=== PATIENT | female | born 1995 | race Caucasian/White ===

== ENCOUNTER 2016-10-07 09:14 | Emergency (ER) | payer OTHER ==
[2016-10-07 09:24] VITALS: BP 154/70; PULSE 66; RESP 18; TEMP 98.9
--- NOTE | 2016-10-07 09:51 | ED ---
ENT HPI - General Chief complaint: Dental/Oral Stated complaint: tooth pain Time Seen by Provider: 10/07/16 09:35 Source: patient, RN notes reviewed Mode of arrival: ambulatory Limitations: no limitations - History of Present Illness Initial comments: 21-year-old female presents to the emergency department with a chief complaint of dental pain. Patient states that she went to her dentist yesterday and was informed that all her wisdom teeth are coming in and she was made appointment for 2 weeks Now. Patient states they were informed that they were infected however she is not on any antibiotics. Patient states she continues to have throbbing and pain to the back of her mouth. Patient states water or anything seems to make the pain worse. Patient denies any fever chills with this. Patient denies any physical improved her clothes about 30 radiation to the neck. Patient states that she was concerned due to her continued pain so she thought that she should be evaluated. Patient denies any recent fever, chills, shortness of breath, chest pain, back pain, abdominal pain, nausea vomiting, numbness or tingling, dysuria or hematuria, constipation or diarrhea, headaches or visual changes, or any other current symptoms. - Related Data Home Medications Medication Instructions Recorded Confirmed Ranitidine HCl [Zantac] 150 mg PO BID 05/10/15 02/17/16 Ferrous Sulfate [Feosol] 325 mg PO DAILY 02/17/16 02/17/16 Ibuprofen [Motrin] 800 mg PO TID PRN 02/17/16 02/17/16 Norethindrone-E.estradiol-Iron 1 tab PO DAILY 02/17/16 02/17/16 [Loestrin Fe 1.5-30 Tablet] Zinc 50 mg PO DAILY 02/17/16 02/17/16 Previous Rx's Medication Instructions Recorded Acetaminophen-Codeine 300-30mg 1 tab PO Q4H PRN #20 tablet 10/07/16 [Tylenol w/codeine #3] Penicillin V Potassium [Pen Vee K] 500 mg PO TID #40 tab 10/07/16 Allergies Allergy/AdvReac Type Severity Reaction Status Date / Time Mushroom Allergy Rash/Hives Verified 02/17/16 19:24 ibuprofen AdvReac Nausea & Verified 10/07/16 09:25 Vomiting Review of Systems ROS Statement: Those systems with pertinent positive or pertinent negative responses have been documented in the HPI. ROS Other: All systems not noted in ROS Statement are negative. Past Medical History Past Medical History: GERD/Reflux Additional Past Medical History / Comment(s): Obstetric history: THis is her first and she has been seeing me for care since the first trimester. A+, abs neg, Rub Imm, RPR Nr, GBS neg. normal 1hr GTT. History of Any Multi-Drug Resistant Organisms: None Reported Past Surgical History: Cholecystectomy, Orthopedic Surgery Additional Past Surgical History / Comment(s): acl repair-lt Past Anesthesia/Blood Transfusion Reactions: No Reported Reaction Past Psychological History: No Psychological Hx Reported Smoking Status: Former smoker Past Alcohol Use History: None Reported Past Drug Use History: Marijuana - Past Family History Mother Family Medical History: No Reported History General Exam Limitations: no limitations General appearance: alert, in no apparent distress Head exam: Present: atraumatic, normocephalic, normal inspection ENT exam: Present: mucous membranes moist, normal external ear exam Expanded Ear exam: Present: normal external inspection Teeth exam: Present: normal inspection, other (Tenderness to the gums over the posterior aspect all aspects mouth). Absent: dental caries, fractured tooth #, dental tenderness #, gingival enlargement Throat exam: normal inspection Neck exam: Present: normal inspection. Absent: tenderness, meningismus, lymphadenopathy Respiratory exam: Present: normal lung sounds bilaterally. Absent: respiratory distress, wheezes, rales, rhonchi, stridor Cardiovascular Exam: Present: regular rate, normal rhythm, normal heart sounds. Absent: systolic murmur, diastolic murmur, rubs, gallop, clicks Neurological exam: Present: alert, oriented X3 Psychiatric exam: Present: normal affect, normal mood Skin exam: Present: warm, dry, intact, normal color. Absent: rash Course Vital Signs 10/07/16 09:20 Temperature 98.9 F Pulse Rate 66 Respiratory 18 Rate Blood Pressure 154/70 O2 Sat by Pulse 97 Oximetry Medical Decision Making - Medical Decision Making 21-year-old female presents for dental pain. We'll start antibiotics as well as pain medication. We did discuss continued follow-up with dentist return parameters. We did discuss all the patient's questions. She stated that she understood and is in agreement with the plan. She will be discharged home. Disposition Clinical Impression: Toothache Disposition: HOME SELF-CARE Condition: Stable Instructions: Toothache (ED) Additional Instructions: Please use medication as discussed. Please follow up with family doctor if symptoms have not improved over the next two days. Please return to the emergency room if your symptoms increase or worsen or for any other concerns. Prescriptions: Acetaminophen-Codeine 300-30mg [Tylenol w/codeine #3] 1 tab PO Q4H PRN #20 tablet PRN Reason: Pain Penicillin V Potassium [Pen Vee K] 500 mg PO TID #40 tab Referrals: Ruy Duque DO [Primary Care Provider] - 1-2 days Time of Disposition: 09:51
== END 2016-10-07 10:14 | disposition home or self-care (01) ==
LOC: EC 09:14
DX: K08.89 Other specified disorders of teeth and supporting structures (principal); K21.9 Gastro-esophageal reflux disease without esophagitis; Z87.891 Personal history of nicotine dependence; Z91.018 Allergy to other foods; Z88.6 Allergy status to analgesic agent; Z79.899 Other long term (current) drug therapy
CPT/HCPCS: 99282

== ENCOUNTER 2019-01-14 07:27 | Emergency (ER) | payer OTHER ==
[2019-01-14 07:40] VITALS: BP 120/83; PULSE 64; RESP 20; TEMP 97.8
[2019-01-14 08:09] LABS: Appearance,Urine Clear (Clear); Bilirubin,Urine Negative (Negative); Blood,Urine Negative (Negative); Color,Urine Light Yellow; Glucose,Urine (UA) Negative (Negative); Ketones,Urine Negative (Negative); Leukocyte Esterase,Urine Negative (Negative); Nitrite,Urine Negative (Negative); PH, Urine 5.5 (5.0-8.0); Protein,Urine Negative (Negative); Specific Gravity,Urine 1.014 (1.001-1.035); Urobilinogen,Urine <2.0 mg/dL (<2.0)
--- NOTE | 2019-01-14 08:13 | ED ---
Recheck HPI - General Chief Complaint: Recheck/Abnormal Lab/Rx Stated Complaint: needs test Time Seen by Provider: 01/14/19 07:41 Source: patient, RN notes reviewed Mode of arrival: ambulatory Limitations: no limitations - History of Present Illness Initial Comments: 23-year-old female presents emergency Department with chief complaint of vaginal itching and foul odor. Patient states that she has noticed over the last couple days. Patient sent follow-up with her physician though they stated they could not get her in for one month. Patient also states that she's had very light abnormal. Centimeters 3 months and is concerned she may be . She is A0 denies any vaginal bleeding. Patient has no complaints of abdominal pain including nausea, vomiting, diarrhea constipation no flank pain no fevers chills., - Related Data Previous Rx's Medication Instructions Recorded metroNIDAZOLE [Flagyl] 500 mg PO TID #21 tab 01/14/19 Allergies Allergy/AdvReac Type Severity Reaction Status Date / Time Mushroom Allergy Rash/Hives Verified 01/14/19 08:08 ibuprofen AdvReac Nausea & Verified 01/14/19 08:08 Vomiting Penicillins AdvReac Vomiting Verified 01/14/19 08:08 Review of Systems ROS Statement: Those systems with pertinent positive or pertinent negative responses have been documented in the HPI. ROS Other: All systems not noted in ROS Statement are negative. Past Medical History Past Medical History: GERD/Reflux Additional Past Medical History / Comment(s): Obstetric history: THis is her fir st and she has been seeing me for care since the first trimester. A+, abs neg, Rub Imm, RPR Nr, GBS neg. normal 1hr GTT. History of Any Multi-Drug Resistant Organisms: None Reported Past Surgical History: Cholecystectomy, Orthopedic Surgery Additional Past Surgical History / Comment(s): acl repair-lt Past Anesthesia/Blood Transfusion Reactions: No Reported Reaction Past Psychological History: No Psychological Hx Reported Smoking Status: Former smoker Past Alcohol Use History: None Reported Past Drug Use History: Marijuana - Past Family History Mother Family Medical History: No Reported History General Exam Limitations: no limitations General appearance: alert, in no apparent distress Head exam: Present: atraumatic, normocephalic, normal inspection Respiratory exam: Present: normal lung sounds bilaterally. Absent: respiratory distress, wheezes, rales, rhonchi, stridor Cardiovascular Exam: Present: regular rate, normal rhythm, normal heart sounds. Absent: systolic murmur, diastolic murmur, rubs, gallop, clicks GI/Abdominal exam: Present: soft, normal bowel sounds. Absent: distended, tenderness, guarding, rebound, rigid External exam: Present: normal external exam, other (Exam performed with RN) Speculum exam: Present: vaginal discharge Back exam: Absent: CVA tenderness (R), CVA tenderness (L) Neurological exam: Present: alert Skin exam: Present: warm, dry, intact, normal color. Absent: rash Course Vital Signs 01/14/19 07:37 Temperature 97.8 F Pulse Rate 64 Respiratory 20 Rate Blood Pressure 120/83 O2 Sat by Pulse 99 Oximetry Medical Decision Making - Medical Decision Making 23-year-old female presented vaginal symptoms dysuria. Patient has evidence of bacterial vaginosis exam. Patient was placed on Flagyl. Patient has negative test. - Lab Data Lab Results 01/14/19 01/14/19 Range/Units 07:57 07:57 Urine Color Light Yellow Urine Appearance Clear (Clear) Urine pH 5.5 (5.0-8.0) Ur Specific [place] 1.014 (1.001-1.035) Urine Protein Negative (Negative) Urine Glucose (UA) Negative (Negative) Urine Ketones Negative (Negative) Urine Blood Negative (Negative) Urine Nitrite Negative (Negative) Urine Bilirubin Negative (Negative) Urine Urobilinogen <2.0 (<2.0) mg/dL Ur Leukocyte Esterase Negative (Negative) Urine HCG, Qual Not Detected (Not Detectd) Disposition Clinical Impression: Bacterial vaginosis Disposition: HOME SELF-CARE Condition: Stable Instructions (If sedation given, give patient instructions): Bacterial Vaginosis (ED) Additional Instructions: Please return to the Emergency Department if symptoms worsen or any other concerns. Prescriptions: metroNIDAZOLE [Flagyl] 500 mg PO TID #21 tab Is patient prescribed a controlled substance at d/c from ED?: No Referrals: Ruy Duque DO [Primary Care Provider] - 1-2 days Time of Disposition: 09:07
[2019-01-14] MEDS ORDERED: AZITHROMYCIN 250 MG TAB PO STA (09:25)
[2019-01-14] MEDS ORDERED: cefTRIAXone 250 MG VIAL IM STA (09:25)
[2019-01-15 14:03] LABS: C. trachomatis,PCR Negative (Neg,Equiv); Chlamydia trachomatis Source Vagina
[2019-01-15 14:05] LABS: N. gonorrhoeae,PCR Negative (Neg,Equiv); Neisseria Source Vagina
== END 2019-01-14 09:56 | disposition home or self-care (01) ==
LOC: EC 07:27
DX: N76.0 Acute vaginitis (principal); Z32.02 Encounter for pregnancy test, result negative; Z91.018 Allergy to other foods; Z88.0 Allergy status to penicillin; Z88.6 Allergy status to analgesic agent; Z87.891 Personal history of nicotine dependence
CPT/HCPCS: 81003; 81025; 87808; 87491; 87591; 87070; 87205; 99283; 96372; J0696

== ENCOUNTER → 2019-05-12 | Outpatient (CLI) | payer OTHER ==
[~2019-05-12] MED LIST: cefTRIAXone 250 MG VIAL IM ONE
[2019-05-12 15:13] VITALS: BP 124/81; PULSE 62; RESP 15; TEMP 97.7
== END | disposition home or self-care (01) ==
LOC: PROCWHC3 14:41
PROVIDERS: ATTEND Obstetrics & Gynecology
DX: A54.9 Gonococcal infection, unspecified (principal)
CPT/HCPCS: 96372; J0696

== ENCOUNTER 2019-11-23 09:25 | Outpatient (CLI) | payer OTHER ==
[2019-11-23] MEDS ORDERED: LACTATED RINGERS 1,000 ML IV ONE (10:00)
[2019-11-23 10:32] LABS: Appearance,Urine Cloudy (Clear); Bacteria,Urine Occasional /hpf; Bilirubin,Urine Negative (Negative); Blood,Urine Negative (Negative); Color,Urine Yellow; Glucose,Urine (UA) Negative (Negative); Ketones,Urine 3+ (Negative); Leukocyte Esterase,Urine Moderate (Negative); Mucus,Urine Moderate /hpf; Nitrite,Urine Negative (Negative); PH, Urine 5.5 (5.0-8.0); Protein,Urine Negative (Negative); RBC,Urine 3 /hpf (0-5); Specific Gravity,Urine 1.009 (1.001-1.035); Squamous Epithelial Cell,Urine 3 /hpf (0-4); Urobilinogen,Urine <2.0 mg/dL (<2.0); WBC,Urine 21 /hpf (0-5)
[2019-11-23 11:21] VITALS: BP 126/66; PULSE 81; RESP 16; TEMP 97.3
--- NOTE | 2019-12-14 12:39 | P.MSEPDOC ---
Presenting Problems - Arrival Data Date of Arrival on Unit: 11/23/19 Time of Arrival on Unit: 09:25 Mode of Transport: Ambulatory - Complaint OB-Reason for Admission/Chief Complaint: Other Comment: n/v since november 19 Medical History - Information : 2 Para: 1 Term: 1 : 0 Abortions: Spontaneous or Elective: 0 Number of Living Children: 1 - Gestational Age Gestational Age by ASHLEY (wks/days): 20 Weeks and 2 Days Review of Systems - Review of Systems Constitutional: No problems Breast: No problems ENT: No problems Cardiovascular: No problems Respiratory: No problems Gastrointestinal: No problems Genitourinary: No problems Musculoskeletal: No problems Neurological: No problems Skin: No problems Vital Signs - Temperature Temperature: 97.3 F Temperature Source: Temporal Artery Scan - Pulse Right Brachial Pulse Rate: 81 Pulse Assessment Method: Automatic Cuff - Respirations Respiratory Rate: 16 Oxygen Delivery Method: Room Air - Blood Pressure Right Arm Blood Pressure: 126/66 Blood Pressure Mean: 86 Blood Pressure Source: Automatic Cuff Medical Screen Scoring (Pre) - Cervical Exam Dilation: Exam Deferred - Uterine Contractions Frequency: N/A Duration: N/A Intensity: N/A - Maternal Vital Signs Maternal Temperature: N/A Maternal Blood Pressure: N/A Signs of Preeclampsia: N/A Maternal Respirations: N/A - Maternal Trauma Maternal Trauma: N/A - Assessment - Baby A Baseline FHR: 135 - Total Score - Baby A Total Score - Baby A: 0 - Total Score - Baby B Total Score - Baby B: 0 - Total Score - Baby C Total Score - Baby C: 0 - Level of Risk - Baby A Level of Risk - Baby A: Low (0-5) - Level of Risk - Baby B Level of Risk - Baby B: Low (0-5) - Level of Risk - Baby C Level of Risk - Baby C: Low (0-5) Physician Notification (Pre) - Physician Notified Physician Notified Date: 11/23/19 Physician Notified Time: 09:50 New Order Received: Yes - Notification Comment Comment: reported pts visit, n/v since , was daily marijuana smoker until recently, then n/v began. orders for UA and iv bolus, UA sent,, results reported, IV infused. pt may be discharged home. culture UA Disposition - Disposition OB Disposition: Discharge to home Discharge Date: 11/23/19 Discharge Time: 11:05 I agree with the RN Medical Screening Exam: Yes Risk & Benefit of care provided described in d/c instruction: Yes Diagnosis: VOMITING OF , UNSPECIFIED
== END 2019-11-23 11:09 | disposition home or self-care (01) ==
LOC: FBPOP 09:25
PROVIDERS: ATTEND Obstetrics & Gynecology Obstetrics
DX: O21.2 Late vomiting of pregnancy (principal); Z3A.20 20 weeks gestation of pregnancy
CPT/HCPCS: 81001; 87086; 96367; 99215

== ENCOUNTER 2020-04-01 09:36 | Inpatient (IN) | payer OTHER ==
[2020-03-31 10:12] VITALS: BMI 42.9
[2020-04-01] MEDS ORDERED: CITRIC ACID-SODIUM CITRATE 15 ML CUP PO ONE (10:07)
[2020-04-01] MEDS ORDERED: CLINDAMYCIN 900 MG in DEXTROSE 5% IN WATER 50 ML IVPB ONE ×2 (10:15)
[2020-04-01] MEDS ORDERED: GENTAMICIN 400 MG in SODIUM CHLORIDE 0.9% 100 ML IVPB ONE (10:30)
[2020-04-01 10:48] LABS: Basophils % (A) 0 %; Eosinophils # (A) 0.1 k/uL (0-0.7); Eosinophils % (A) 2 %; HCT 33.6 % (34.0-46.0); HGB 10.8 gm/dL (11.4-16.0); Lymphocytes # (A) 1.2 k/uL (1.0-4.8); Lymphocytes % (A) 15 %; MCH 26.2 pg (25.0-35.0); MCHC 32.1 g/dL (31.0-37.0); MCV 81.6 fL (80.0-100.0); Mean Platelet Volume 7.6; Monocytes # (A) 0.3 k/uL (0-1.0); Monocytes % (A) 4 %; Neutrophils # (A) 6.1 k/uL (1.3-7.7); Neutrophils % (A) 78 %; Platelet Count 372 k/uL (150-450); RBC 4.12 m/uL (3.80-5.40); RDW 15.3 % (11.5-15.5); WBC 7.8 k/uL (3.8-10.6)
[2020-04-01] MEDS: LACTATED RINGERS 1,000 ML IV SCH ×2 (11:32→17:50)
--- NOTE | 2020-04-01 11:58 | P.HPOB ---
History of Present Illness H&P Date: 04/01/20 Chief Complaint: For elective repeat section and tubal ligation This is a 24-year-old female 2 para 1001 EDC 04/08/2020 at 39 weeks gestation. Patient presents today for repeat section and tubal ligation. Fetus is been active throughout the . She denies vaginal bleeding. She is having irregular contractions. No fluid leakage. Past medical history is significant for type 2 diabetes. Past surgical history section 2014, cholecystectomy, left knee arthroscopy. Current medications vitamins daily. ALLERGIES include penicillin (emesis), mushrooms (rash) and ibuprofen (nausea). Family history significant for diabetes and hypertension. Social history patient is a assistant speech language pathologist at [employer], she is single, father of the baby is involved. She has never been a tobacco smoker. history is significant for blood type A+, rubella status immune. Hepatitis B surface antigen, gonorrhea and chlamydia cultures, HIV testing, urine culture, group B strep cultures all negative. Urine drug screen positive for marijuana. One-hour Glucola 97. On examination patient is 5 foot 5 inches, 257 pounds, blood pressure 117/69. The general physical exam is within normal limits. Chest is clear in all tee. Extremities reveal no edema. Abdomen is obviously gravid, full-term. is vertex to Trey's maneuvers. heart rate is consistent with reactive NST. There are irregular mild uterine contractions noted on the toco monitor. Impression: 39 week intrauterine , here for repeat transverse section and tubal ligation. Group B strep cultures negative. Positive urine drug screen noted. Plan: For repeat low transverse section with tubal ligation. All risks benefits and alternatives discussed. All questions answered. Antibiotic prophylaxis. Review of Systems Constitutional: Reports as per HPI Past Medical History Past Medical History: GERD/Reflux Additional Past Medical History / Comment(s): Obstetric history: THis is her first and she has been seeing me for care since the first trimester. A+, abs neg, Rub Imm, RPR Nr, GBS neg. normal 1hr GTT. History of Any Multi-Drug Resistant Organisms: None Reported Past Surgical History: Section, Cholecystectomy, Orthopedic Surgery Additional Past Surgical History / Comment(s): acl repair-lt Past Anesthesia/Blood Transfusion Reactions: Postoperative Nausea & Vomiting (PONV) Past Psychological History: ADD/ADHD Smoking Status: Never smoker Past Alcohol Use History: None Reported Past Drug Use History: Marijuana Additional Drug Use History / Comment(s): HAS NOT SMOKED SINCE BEGINNING OF - Past Family History Mother Family Medical History: No Reported History Medications and Allergies Home Medications Medication Instructions Recorded Confirmed Type No Known Home Medications 03/31/20 04/01/20 History Allergies Allergy/AdvReac Type Severity Reaction Status Date / Time Mushroom Allergy Rash/Hives Verified 03/31/20 10:05 ibuprofen AdvReac Nausea & Verified 03/31/20 10:05 Vomiting Penicillins AdvReac Vomiting Verified 03/31/20 10:05 Exam Vital Signs Temp Pulse Resp BP Pulse Ox 04/01/20 10:06 97.8 F 97 16 117/69 98 Intake and Output 03/31/20 04/01/20 04/01/20 22:59 06:59 14:59 Other: Weight 117.027 kg See dictation under HPI please Results Result Diagrams: 04/01/20 10:05 Abnormal Lab Results - Last 24 Hours (Table) 04/01/20 Range/Units 10:05 Hgb 10.8 L (11.4-16.0) gm/dL Hct 33.6 L (34.0-46.0) % Assessment and Plan Assessment: 39 week intrauterine , undesired fertility, here for repeat low transverse section and tubal ligation. All signs reassuring. Mild anemia noted. Plan: Antibiotic prophylaxis. For repeat low transverse section and tubal ligation. Time with Patient: Less than 30
[2020-04-01] MEDS ORDERED: KETOROLAC 15 MG/ML 1 ML VIAL ONE (12:00)
[2020-04-01] MEDS ORDERED: PHENYLEPHRINE-0.9% NACL SYG 1 MG/10 ML SYRINGE ONE (12:00)
[2020-04-01] MEDS ORDERED: OXYTOCIN 10 UNIT/ML 1 ML VIAL ONE (12:00)
[2020-04-01] MEDS ORDERED: MORPHINE SULFATE (PF) 0.3 MG/0.3 ML SYR ONE (12:00)
[2020-04-01] MEDS ORDERED: ONDANSETRON 4 MG/2 ML VIAL ONE (12:00)
[2020-04-01] MEDS ORDERED: ZOLPIDEM 5 MG TAB PO PRN (12:58)
[2020-04-01] MEDS ORDERED: ONDANSETRON 4 MG/2 ML VIAL IVP PRN (12:58)
--- NOTE | 2020-04-01 12:58 | P.OP ---
Date of Procedure: 04/01/20 Preoperative Diagnosis: 89 week intrauterine , undesired fertility, previous section declining . Postoperative Diagnosis: Same, normal-appearing tubes and ovaries bilaterally. Procedure(s) Performed: Repeat low transverse section, tubal ligation with Filshie clips Anesthesia: spinal Surgeon: Yvonne Power Market Superintendent #1: Emerita Ellis Estimated Blood Loss (ml): 600 IV fluids (ml): 1,000 Urine output (ml): 300 Pathology: none sent Condition: stable Disposition: PACU Operative Findings: Liveborn female infant, scores 7 and 9 at one and 5 minutes respectively, 2700 g, 5 lbs. 15 oz. Normal-appearing tubes and ovaries bilaterally. Description of Procedure: Patient is brought to the operating suite after clindamycin and gentamicin are given prophylactically. The appropriate timeout is performed to assure proper patient and procedural identification. Bush catheter placed to direct drainage, Bicitra given. Abdomen is prepped and draped in the usual sterile fashion after a spinal with Duramorph is given without difficulty. The abdomen is prepped and draped in usual sterile fashion. The analgesia is checked and noted to be adequate. A repeat low transverse skin incision is made, this is carried down through the subcutaneous tissue which is approximately 6 cm deep. Fascia is isolated, scored, extended bilaterally with curved Singh scissors. Peritoneum is next identified and incised, there is no bowel or bladder involvement. Bladder flap is taken down gently with Metzenbaum scissors and at all times the bladder is Well from the operative field to avoid bladder and/or ureteral injury. A repeat low transverse uterine incision is made. Artificial amniorrhexis reveals clear fluid. The incision is extended bluntly. The infant's head is delivered in the occiput anterior position easily, the oropharynx, nasopharynx, and external nares were all bulb suctioned. Patient is officially delivered of a liveborn female at 1224 hours. Umbilical cord is doubly clamped and ligated, she is handed to waiting nurses for evaluation where scores of 7 and 9 at one and 5 minutes respectively are given. The placenta is delivered manually, it is inspected and noted to be intact with trivascular cord. This is done at 1225 hrs. Uterus is then externalized and massaged. Oxytocin is given. Uterus is swept clean with a sterile sponge to avoid any retained products of conception. The uterus is closed in a single full-thickness suture of 0 Vicryl in a running locking manner for excellent reapproximation. Bilateral tubes are inspected and noted to be normal. Ovaries are normal. Filshie clips are used in the isthmic portion of both tubes, care to traverse the entire diameter of the tube into the mesal salpinx, and fimbriated ends are identified for proper placement. The uterus is then mobilized and suction is performed posterior to the uterus. Uterus is then placed gently back into the abdominal cavity. Bilateral gutters are inspected and cleaned. All surgical edges are hemostatically intact. Peritoneum is allowed to close by secondary intention. Fascia is closed in a running stitch with over ligation in the midline of 0 Vicryl suture. Subcutaneous tissue is irrigated, clean and dry. It is reapproximated with 3-0 Vicryl in a running manner. 4-0 undyed Monocryl is used in a subcuticular manner for final skin closure. Steri-Strips and Mastisol are applied to the wound. Dressing is applied. Uterus is massaged. All sponge needle and enhancement counts are correct at the end of the procedure. Patient is brought back to recovery room in very good condition with a pulse of 76, 100% O2 saturation, blood pressure 105/46. Bush is noted to be draining clear urine.
[2020-04-01] MEDS: METOCLOPRAMIDE 5 MG/ML 2 ML VIAL IVP PRN ×2 (14:18→19:59)
[2020-04-01] MEDS ORDERED: SCOPOLAMINE 1.5MG/72HR PATCH TRANSDERM STA (17:38)
[2020-04-01] MEDS ORDERED: diphenhydrAMINE 50 MG CAP PO PRN (21:22)
[2020-04-01] MEDS ORDERED: IBUPROFEN 600 MG TAB PO PRN (21:22)
[2020-04-01] MEDS ORDERED: NALOXONE 0.4 MG/ML 1 ML VIAL IV PRN (21:22)
[2020-04-01] MEDS ORDERED: diphenhydrAMINE 25 MG CAP PO PRN (21:22)
[2020-04-01] MEDS ORDERED: diphenhydrAMINE 50 MG/ML 1 ML VIAL IVP PRN ×2 (21:22)
[2020-04-02] MEDS: LACTATED RINGERS 1,000 ML IV SCH (01:55)
[2020-04-02] MEDS: SIMETHICONE 80 MG CHEWABLE PO PRN ×2 (04:33→08:19)
--- NOTE | 2020-04-02 07:31 | P.PN ---
Progress Note - Text Progress Note Date: 04/02/20 Postoperative day 1 status post section under spinal anesthesia, and intrathecal morphine given for postoperative analgesia, patient doing well, there is no anesthesia related complications, Patient had no headache, vital signs stable , Assessment and plan= postop day 1 status post , doing well there is no anesthesia related complication.
--- NOTE | 2020-04-02 07:32 | P.PN ---
Subjective Progress Note Date: 04/02/20 Principal diagnosis: Postoperative day #1 Slept well. Emesis through the night. Negative flatus. Pain well managed. Minimal lochia rubra. Objective - Vital Signs Vital signs: Vital Signs Temp 97.8 F 04/02/20 04:00 Pulse 80 04/02/20 04:00 Resp 16 04/02/20 04:00 BP 101/50 04/02/20 04:00 Pulse Ox 98 04/02/20 04:00 Intake & Output 04/01/20 04/02/20 04/02/20 18:59 06:59 18:59 Intake Total 50 150 Output Total 800 700 Balance -750 -550 Weight 117.027 kg Intake: Oral 50 150 Output: Urine 200 700 Uretheral (Bush) 300 Estimated Blood Loss 600 Other: Voiding Method Indwelling Catheter Indwelling Catheter # Voids 1 - Constitutional General appearance: Present: average body habitus, cooperative - EENT Eyes: Present: PERRLA ENT: Present: hearing grossly normal - Neck Thyroid: bilateral: normal size - Respiratory Respiratory: bilateral: CTA - Cardiovascular Rhythm: regular - Gastrointestinal General gastrointestinal: Present: normal bowel sounds - Integumentary Integumentary Comment(s): Incision clean and dry, Steri-Strips applied. Fundus firm, midline, symmetric, 18 week size. Integumentary: Present: normal - Neurologic Neurologic: Present: CNII-XII intact - Musculoskeletal Musculoskeletal: Present: gait normal, strength equal bilaterally - Psychiatric Psychiatric: Present: A&O x's 3, appropriate affect, intact judgment & insight - Labs CBC & Chem 7: 04/01/20 10:05 Labs: Abnormal Lab Results - Last 24 Hours (Table) 04/01/20 Range/Units 10:05 Hgb 10.8 L (11.4-16.0) gm/dL Hct 33.6 L (34.0-46.0) % Assessment and Plan Assessment: Doing well postoperative day #1, nausea and vomiting improved. Plan: Recommending no solid food until positive flatus. Continue postoperative care. Breast pump prescription written. Likely discharge home tomorrow.
[2020-04-02] MEDS: SENNOSIDES-DOCUSATE SODIUM 1 EACH TAB PO SCH ×2 (08:19→20:01)
[2020-04-02] MEDS: ACETAMINOPHEN TAB 325 MG TAB PO PRN ×3 (08:48→20:01)
[2020-04-02 08:57] LABS: Basophils % (A) 0 %; Eosinophils # (A) 0.1 k/uL (0-0.7); Eosinophils % (A) 1 %; HCT 30.3 % (34.0-46.0); HGB 10.1 gm/dL (11.4-16.0); Lymphocytes # (A) 1.3 k/uL (1.0-4.8); Lymphocytes % (A) 12 %; MCH 27.6 pg (25.0-35.0); MCHC 33.4 g/dL (31.0-37.0); MCV 82.6 fL (80.0-100.0); Mean Platelet Volume 7.6; Monocytes # (A) 0.5 k/uL (0-1.0); Monocytes % (A) 4 %; Neutrophils # (A) 9.2 k/uL (1.3-7.7); Neutrophils % (A) 82 %; Platelet Count 327 k/uL (150-450); RBC 3.67 m/uL (3.80-5.40); RDW 15.2 % (11.5-15.5); WBC 11.1 k/uL (3.8-10.6)
[2020-04-03] MEDS: ACETAMINOPHEN TAB 325 MG TAB PO PRN (00:19)
[2020-04-03 00:54] VITALS: RESP 16
[2020-04-03] MEDS: SIMETHICONE 80 MG CHEWABLE PO PRN ×2 (01:32→09:03)
[2020-04-03] MEDS: HYDROcodone/APAP 5-325MG 1 EACH TAB PO PRN ×2 (04:21→09:03)
[2020-04-03 07:43] VITALS: BP 103/52; PULSE 57; TEMP 97.7
--- NOTE | 2020-04-03 09:17 | P.DS ---
Providers Date of admission: 04/01/20 09:36 Expected date of discharge: 04/03/20 Attending physician: Yvonne Power Primary care physician: Ruy Duque - Discharge Diagnosis(es) (1) Term Current Visit: Yes Status: Acute (2) H/O section Current Visit: Yes Status: Acute (3) Status post primary low transverse section Current Visit: No Status: Acute Hospital Course: This is a 24-year-old 001 presented to labor and delivery at 39 0/7 weeks for planned scheduled repeat section with tubal ligation. Patient had been receiving routine care which was uneventful. Patient was admitted and repeat with tubal ligation was performed without difficulty. For further details on the please see the operative report. Patient's postoperative course has been uneventful. On this postop day #2 she is ambulating and voiding without difficulty. She is tolerating a regular diet without nausea or vomiting. She states her pain is controlled with oral [place] she does desire discharge home. Plan - Discharge Summary Discharge Rx Participant: Yes New Discharge Prescriptions: No Action No Known Home Medications Discharge Medication List No Known Home Medications 03/31/20 [History] Follow up Appointment(s)/Referral(s): Yvonne Power MD [STAFF PHYSICIAN] - 2 Weeks Patient Instructions/Handouts: (DC), (GEN) Activity/Diet/Wound Care/Special Instructions: No tub baths or intercourse until 6 weeks post . Patient is to follow-up with Dr. Power 2 weeks for incision check. Should patient have any concerns prior to her postoperative appointment she is to call the office for an appointment. Discharge Disposition: HOME SELF-CARE
[2020-04-03] MEDS: SENNOSIDES-DOCUSATE SODIUM 1 EACH TAB PO SCH (09:30)
== END 2020-04-03 11:45 | disposition home or self-care (01) | DRG 785 ==
LOC: 4FBP 09:36
PROVIDERS: ADMIT Obstetrics & Gynecology; ATTEND Obstetrics & Gynecology
PROC: 10D00Z1 Extraction of Products of Conception, Low, Open Approach (ICD-10-PCS; principal; 2020-04-01 12:00)
PROC: 0UL70CZ Occlusion of Bilateral Fallopian Tubes with Extraluminal Device, Open Approach (ICD-10-PCS; principal; 2020-04-01 12:00)
DX: O34.211 Maternal care for low transverse scar from previous cesarean delivery (principal); O99.02 Anemia complicating childbirth; O24.92 Unspecified diabetes mellitus in childbirth; F90.9 Attention-deficit hyperactivity disorder, unspecified type; D64.9 Anemia, unspecified; O99.344 Other mental disorders complicating childbirth; K21.9 Gastro-esophageal reflux disease without esophagitis; O99.62 Diseases of the digestive system complicating childbirth; Z37.0 Single live birth; Z3A.39 39 weeks gestation of pregnancy; Z82.49 Family history of ischemic heart disease and other diseases of the circulatory system; Z30.2 Encounter for sterilization; Z83.3 Family history of diabetes mellitus; Z88.6 Allergy status to analgesic agent; Z88.0 Allergy status to penicillin; Z91.018 Allergy to other foods; Z90.49 Acquired absence of other specified parts of digestive tract; Z98.890 Other specified postprocedural states
CPT/HCPCS: 85025; 86850; 86900; 86901

== ENCOUNTER → 2020-12-20 | Outpatient (CLI) | payer OTHER ==
[2020-12-20 16:32] LABS: African American GFR (CKD) >90 (>60 ml/min/1.73 sqM); Blood Urea Nitrogen 13 mg/dL (7-17); Non-African American GFR(CKD) >90 (>60 ml/min/1.73 sqM)
--- NOTE | 2020-12-21 07:07 | CT ---
EXAMINATION TYPE: CT abdomen pelvis w con DATE OF EXAM: 12/20/2020 HISTORY: Abdominal pain CT DLP: 1825.20mGycm Automated Exposure Control for Dose Reduction was Utilized. CONTRAST: CT scan of the abdomen and pelvis is performed with oral and with IV Contrast, patient injected with 100 mL of Isovue 300. COMPARISON: Nonionic FINDINGS: LUNG BASES: No significant abnormality is appreciated. LIVER/GB: Cholecystectomy clips are present. PANCREAS: No significant abnormality is seen. SPLEEN: No significant abnormality is seen. ADRENALS: No significant abnormality is seen. KIDNEYS: No significant abnormality is seen. BOWEL: Oral contrast has not reached the level of the terminal ileum making evaluation of distal jacob l slightly suboptimal. Normal-appearing appendix from cecum in the right lower quadrant noted. No manoj picious small or large bowel dilatation. UTERUS/ADNEXA: Anteverted uterus. No suspicious adnexal masses. Tubal ligation clips along the anteri or periphery of the uterus. LYMPH NODES: No greater than 1cm abdominal or pelvic lymph nodes are appreciated. 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 Correlate clinically. OTHER: Small fat-containing umbilical hernia. IMPRESSION: Transitional-type vertebra could cause left-sided pain. No bowel obstruction. No acute fi ndings are evident.
== END | disposition home or self-care (01) ==
LOC: RADCTMAIN 15:27
PROVIDERS: ATTEND Family Medicine
DX: K42.9 Umbilical hernia without obstruction or gangrene (principal)
CPT/HCPCS: 82565; 84520; 74177; 36415; Q9967

== ENCOUNTER → 2021-02-01 | Outpatient (CLI) | payer OTHER ==
--- NOTE | 2021-02-01 10:49 | XR ---
EXAMINATION TYPE: XR elbow complete LT DATE OF EXAM: 02/01/2021 COMPARISON: NONE HISTORY: Pain FINDINGS: Three views of the elbow demonstrate no pathologic joint effusion. The osseous structures are intact . There is no acute fracture or dislocation. IMPRESSION: 1. No acute fracture or dislocation. If symptoms persist follow-up study in 7 to 10 days could be ob tained.
== END | disposition home or self-care (01) ==
LOC: RADXRMAIN 08:38
PROVIDERS: ATTEND Family Medicine
DX: M25.522 Pain in left elbow (principal)

== ENCOUNTER → 2023-11-02 | Outpatient (CLI) | payer OTHER ==
--- NOTE | 2023-11-04 17:12 | US ---
EXAMINATION TYPE: US pelvic complete DATE OF EXAM: 11/02/2023 COMPARISON: CT abdomen pelvis 12/20/2020 CLINICAL INDICATION: Female, 28 years old with history of R87.1 ABN LEV HORMONES IN SPECIMENS FROM FE MALE GE; Painful periods. Hx of tubal ligation. TECHNIQUE: Transabdominal (TA). Transabdominal sonographic images of the pelvis were acquired. Date of LMP: 10/11/2023, EXAM MEASUREMENTS: Uterus: 7.8 x 5.1 x 4.7 cm Endometrial Stripe: 1.7 cm Right Ovary: 2.7 x 1.4 x 1.9 cm Left Ovary: 2.6 x 1.6 x 1.6 cm 1. Uterus: Anteverted wnl 2. Endometrium: wnl for menstrual phase 3. Right Ovary: wnl 4. Left Ovary: wnl 5. Bilateral Adnexa: wnl 6. Anterior and posterior cul-de-sac: free fluid Cervix: wnl Unremarkable anteverted uterus with prominent endometrium which is expected to be normal for patient' s menstruation of cycle. Both ovaries appear within normal limits. Small amount of free fluid within the pelvic cul-de-sac which is likely physiologic. IMPRESSION: No ultrasound evidence of an acute process.
== END | disposition home or self-care (01) ==
LOC: RADUSWWP 16:21
PROVIDERS: ATTEND Family Medicine
DX: R87.1 Abnormal level of hormones in specimens from female genital organs (principal)
CPT/HCPCS: 76856